=== PATIENT | female | born 1945 | race Caucasian/White ===

== ENCOUNTER → 2016-08-13 | Day surgery (SDC) | payer MEDICARE, OTHER ==
[~2016-08-13] VITALS: Ht 172.7 cm; Wt 55.3 kg
== END | disposition home or self-care (01) ==
LOC: FAS 09:15
DX: H26.9 Unspecified cataract (principal); E11.36 Type 2 diabetes mellitus with diabetic cataract; I25.10 Atherosclerotic heart disease of native coronary artery without angina pectoris; I50.9 Heart failure, unspecified; Z95.1 Presence of aortocoronary bypass graft; Z79.4 Long term (current) use of insulin; Z79.899 Other long term (current) drug therapy; Z79.02 Long term (current) use of antithrombotics/antiplatelets

== ENCOUNTER 2020-10-26 16:44 | Emergency (ER) | payer MEDICARE, OTHER ==
[~2020-10-26 16:44] MED LIST: ROBAXIN500 MG PO
== END 2020-10-26 18:25 | disposition home or self-care (01) ==
LOC: FER 16:44
DX: S81.812A Laceration without foreign body, left lower leg, initial encounter (principal); F17.210 Nicotine dependence, cigarettes, uncomplicated; I51.9 Heart disease, unspecified; E11.9 Type 2 diabetes mellitus without complications; Z23 Encounter for immunization; Z79.02 Long term (current) use of antithrombotics/antiplatelets; W22.8XXA Striking against or struck by other objects, initial encounter; Y93.89 Activity, other specified; Y92.009 Unspecified place in unspecified non-institutional (private) residence as the place of occurrence of the external cause
CPT/HCPCS: 90471; 90715

== ENCOUNTER 2020-10-30 20:50 | Day surgery (SDCO) | payer MEDICARE, OTHER ==
[~2020-10-30] VITALS: Ht 172.7 cm; Wt 52.2 kg
[2020-10-30 23:50] LABS: ALBUMIN 2.9 g/dL (3.4-5.0); ALKALINE PHOSHATASE 115 U/L (46-116); ALT 24 U/L (14-59); AST 17 U/L (15-37); BILIRUBIN - TOTAL 0.6 mg/dL (0.2-1.0); BUN 35 mg/dL (7-18); BUN/CREAT RATIO (CALC) 26.9 RATIO; C-REACTIVE PROTEIN >18.00 mg/dL (<=0.90); CHLORIDE 103 mmol/L (98-107); CO2 (BICARBONATE) 29 mmol/L (21-32); GLOBULIN (CALCULATION) 4.3 g/dL; GLUCOSE 146 mg/dL (74-106); POTASSIUM 4.3 mmol/L (3.5-5.1); TOTAL PROTEIN 7.2 g/dL (6.4-8.2)
[2020-10-31 00:11] LABS: BASOPHIL 0.3 % (0-2); EOSINOPHIL 1.2 % (0-7); HCT 37.9 % (37.0-47.0); HGB 12.3 g/dl (12.5-16.0); LYMPHOCYTE 18.8 % (15-48); MCH 31.9 pg (25.0-31.0); MCHC 32.5 g/dL (32.0-36.0); MCV 98.4 fL (78.0-100.0); MONOCYTE 9.2 % (0-12); MPV 11.9 fL (6.0-9.5); NEUTROPHIL 70.4 % (41-80); NRBC 0; PLT 113 K/uL (150-400); RBC 3.85 M/uL (4.20-5.40); RDW 13.2 % (11.5-14.0); WBC 6.7 K/uL (4.0-10.5)
[2020-10-31] MEDS ORDERED: BASAGLAR K100 UNIT/1 SC (05:32)
[2020-10-31] MEDS ORDERED: PLAVIX75 MG PO (05:33)
[2020-10-31] MEDS ORDERED: PRINIVIL10 MG PO (05:33)
[2020-10-31] MEDS ORDERED: K-DUR20 MEQ PO (05:33)
[2020-10-31] MEDS ORDERED: BUMEX1 MG PO (05:33)
[2020-10-31] MEDS ORDERED: LIPITOR40 MG PO (05:34)
[2020-10-31] MEDS ORDERED: PROPRANOLOL PO (05:37)
--- NOTE | 2020-10-31 14:14 | NUR ---
FREDERIC THE PHYSICAL THERAPIST RECOMMENDED AN ASSISTIVE DEVICE AND TO SPEAK WITH THE PT. TO SEE WHAT SHE WANTS. MET WITH THE PT. SHE WOULD PREFER A ROLLING WALKER AT THIS TIME. SHE WOULD ALSO PREFER OUTPT. IV INFUSION VS HH. PER HER NURSE, YARED, PT. IS SCHEUDLED TO GET A PICC THIS DATE. FAXED RW REQUEST TO REVA AT [facility].
--- NOTE | 2020-10-31 18:40 | NUR ---
1805 MIDLINE ORDERED FOR HOME IV ANTIBIOTICS. PROCEDURE WAS EXPLAINED TO PATIENT.PT WAS PREPPED AND DRAPED IN STERILE FASHION. THE PT'S LEFT UPPER ARM BASILIC VEIN WAS VISUALIZED USING THE SITE RITE #6 US MACHINE. A 21 GAUGE GUIDE NEEDLE WAS INSERTED AFTER THE AREA WAS NUMBED WITH 1% LIDOCAINE. GOOD BLOOD RETURN WAS NOTED. THE GUIDE WIRE THREADED EASILY. THE NEEDLE WAS REMOVED AND THE MIDLINE CATHETER WAS PLACED OVER THE WIRE. THE WIRE AND SHEATH WERE REOMVED. GOOD BLOOD RETURN WAS NOTED. A CONNECTOR WAS FLUSHED AND PLACED OVER THE END OF THE CATHETER, A STAT LOCK WAS PLACED ON THE CATHETER AND A BIOPATCH WAS PLACED ON TOP OF THE INSERTION SITE. A STERILE TEGADERM WAS PLACED OVER THE MIDLINE CATHETER. CATHETER WAS POSITIONAL WITH BLOOD RETURN, BUT FLUSHES EASILY. GOOD FOR 29 DAYS, THIS IS NOT A CENTRAL LINE, REPORT WAS GIVEN TO Sade VAIL ON MED/SURG. THE PT TOLERATED THE PROCEDURE WELL. BED WAS LOWERED TO THE LOWEST POSITION, SR UP X 2, CALL LIGHT WAS WITHIN REACH.
[2020-11-01 06:02] LABS: BASOPHIL 0.5 % (0-2); EOSINOPHIL 3.2 % (0-7); HCT 33.5 % (37.0-47.0); HGB 10.6 g/dl (12.5-16.0); LYMPHOCYTE 19.8 % (15-48); MCH 30.8 pg (25.0-31.0); MCHC 31.6 g/dL (32.0-36.0); MCV 97.4 fL (78.0-100.0); MONOCYTE 11.4 % (0-12); MPV 10.9 fL (6.0-9.5); NEUTROPHIL 64.6 % (41-80); NRBC 0; PLT 112 K/uL (150-400); RBC 3.44 M/uL (4.20-5.40); RDW 13.2 % (11.5-14.0); WBC 3.8 K/uL (4.0-10.5)
[2020-11-01 06:10] LABS: BUN/CREAT RATIO (CALC) 22.2 RATIO; CREATININE 0.99 mg/dL (0.51-0.95); POTASSIUM 4.6 mmol/L (3.5-5.1)
[2020-11-01 09:03] LABS: IRON % SATURATION 16.8 %SAT (20-50)
[2020-11-01] MEDS ORDERED: POLY-IRON150 MG PO (17:56)
[2020-11-01] MEDS ORDERED: VITAMIN B-121000 MC1 PO (17:56)
== END 2020-11-01 20:40 | disposition home or self-care (01) ==
LOC: FER 20:50 → FMS 10-31 02:52
PROVIDERS: Emergency Medicine; Nurse Practitioner; ADMIT Internal Medicine
DX: L03.115 Cellulitis of right lower limb (principal); I25.10 Atherosclerotic heart disease of native coronary artery without angina pectoris; E11.9 Type 2 diabetes mellitus without complications; Z79.4 Long term (current) use of insulin; Z79.01 Long term (current) use of anticoagulants; Z95.0 Presence of cardiac pacemaker; I10 Essential (primary) hypertension; R60.9 Edema, unspecified; E78.5 Hyperlipidemia, unspecified; I25.2 Old myocardial infarction; F17.210 Nicotine dependence, cigarettes, uncomplicated; D50.9 Iron deficiency anemia, unspecified; N17.9 Acute kidney failure, unspecified; C67.9 Malignant neoplasm of bladder, unspecified; Z20.822 Contact with and (suspected) exposure to COVID-19; Z23 Encounter for immunization
CPT/HCPCS: 36415; 73590; 80048; 80053; 80202; 82607; 82962; 83540; 83550; 83735; 85025; 86140; 90471; 90715; 93971; 97161; 97165; 97535; C1751; G0378; J0295; J0690; J1642; J3370; J7030; J7050; J7120; U0002